=== PATIENT | female | born 2000 | race Caucasian/White ===

== ENCOUNTER 2019-11-14 20:52 | Emergency (ER) | payer SELFPAY ==
[~2019-11-14] VITALS: Ht 152.4 cm; Wt 38.6 kg
--- NOTE | 2019-11-14 22:18 | NUR ---
Dr Chávez into eval patient.
[2019-11-14] MEDS ORDERED: IBUPROFEN 400 MG TABLET ONE (22:27)
[2019-11-14] MEDS ORDERED: IBUPROFEN 400 MG TABLET PO ONE (22:30)
--- NOTE | 2019-11-14 23:35 | NUR ---
Patient in room laying on gurny with no distress noted.
--- NOTE | 2019-11-15 00:10 | NUR ---
Crutches dispensed. Pt instructed on proper use of crutches. Patient able to demonstrate correct use of crutches.
[2019-11-15 00:17] VITALS: BP 118/60
--- NOTE | 2019-11-15 00:17 | NUR ---
Patient discharged to home in stable conditon. Written and verbal after care instructions given. Patient verbalizes understanding of instructions. Walked out of ER with no distress noted.
== END 2019-11-15 00:18 | disposition home or self-care (01) ==
LOC: ER 20:52
DX: S40.011A Contusion of right shoulder, initial encounter (principal); S50.01XA Contusion of right elbow, initial encounter; S80.01XA Contusion of right knee, initial encounter; S93.401A Sprain of unspecified ligament of right ankle, initial encounter; R51 Headache; W01.0XXA Fall on same level from slipping, tripping and stumbling without subsequent striking against object, initial encounter; Y93.89 Activity, other specified; Y92.89 Other specified places as the place of occurrence of the external cause; Y99.8 Other external cause status
CPT/HCPCS: 73030; 73080; 73130; 73610; A4663